=== PATIENT | female | born 1985 | race African-American/Black ===

== ENCOUNTER 2019-03-02 11:02 | Emergency (ER) | payer OTHER ==
[~2019-03-02] VITALS: Ht 162.6 cm; Wt 71.4 kg
[2019-03-02 11:11] VITALS: BP 156/96
[2019-03-02] MEDS: BACITRACIN 0.9 GM PACKET OINTMENT TP ONE (13:17)
[2019-03-02] MEDS: PERTUSS(ACELL),DIPH,TET VAC/PF 0.5 ML VIAL IM ONE (13:17)
[2019-03-02] MEDS: BUPIVACAINE HCL/PF 0.25% 10 ML VIAL INJ ONE (13:17)
== END 2019-03-02 13:44 | disposition home or self-care (01) ==
LOC: EMS 11:03
DX: S61.215A Laceration without foreign body of left ring finger without damage to nail, initial encounter (principal); S61.217A Laceration without foreign body of left little finger without damage to nail, initial encounter; W45.8XXA Other foreign body or object entering through skin, initial encounter; Y93.89 Activity, other specified; Y92.89 Other specified places as the place of occurrence of the external cause; Y99.8 Other external cause status
CPT/HCPCS: 12001; 90471; 90715; 99283; J3490

== ENCOUNTER 2019-06-08 18:05 | Emergency (ER) | payer OTHER ==
[~2019-06-08] VITALS: Ht 162.6 cm; Wt 67.7 kg
[2019-06-08] MEDS ORDERED: FLUCONAZOLE 150 MG TABLET PO ONE (19:30)
[2019-06-08] MEDS ORDERED: MetroNIDAZOLE 500 MG TABLET PO ONE (19:30)
[2019-06-08] MEDS ORDERED: CefTRIAXone SODIUM 1 GM/VIAL IM ONE (19:30)
[2019-06-08] MEDS ORDERED: AZITHROMYCIN 500 MG TABLET PO ONE (19:30)
[2019-06-08 19:46] LABS: APPEARANCE,URINE CLEAR (CLEAR); BILIRUBIN,URINE NEGATIVE (NEGATIVE); GLUCOSE, URINE (UA) NEGATIVE (NEGATIVE); KETONES,URINE NEGATIVE (NEGATIVE); LEUKOCYTE ESTERASE ,URINE SMALL (NEGATIVE); NITRATE,URINE NEGATIVE (NEGATIVE); OCCULT BLOOD,URINE NEGATIVE (NEGATIVE); PH,URINE 6.5 (5.0-8.0); PROTEIN,URINE NEGATIVE (NEGATIVE); UROBILINOGEN,URINE 0.2 mg/dL (<=1.0)
[2019-06-08 20:27] LABS: BACTERIA,URINE Few /HPF (None Seen); RBC,URINE None Seen /HPF (0-2); SQUAMOUS EPITHELIAL CELL,UR Moderate /LPF (None Seen)
[2019-06-08] MEDS ORDERED: LIDOCAINE 1% 10 ML VIAL INJ ONE (20:30)
[2019-06-08 21:11] VITALS: BP 148/97
== END 2019-06-08 21:16 | disposition home or self-care (01) ==
LOC: EMS 18:07
DX: B37.3 Candidiasis of vulva and vagina (principal)
CPT/HCPCS: 81001; 84703; 96372; 99284; J0696

== ENCOUNTER 2022-09-24 20:17 | Emergency (ER) | payer OTHER ==
[~2022-09-24] VITALS: Ht 162.6 cm; Wt 72.7 kg
[2022-09-24 21:30] LABS: APPEARANCE,URINE HAZY (CLEAR); BILIRUBIN,URINE NEGATIVE (NEGATIVE); GLUCOSE, URINE (UA) NEGATIVE (NEGATIVE); KETONES,URINE TRACE mg/dL (NEGATIVE); LEUKOCYTE ESTERASE ,URINE LARGE (NEGATIVE); NITRATE,URINE NEGATIVE (NEGATIVE); OCCULT BLOOD,URINE NEGATIVE (NEGATIVE); PH,URINE 6.5 (5.0-8.0); PROTEIN,URINE 30-70 mg/dL (NEGATIVE); SPECIFIC GRAVITIY, URINE 1.026 (1.003-1.030); UROBILINOGEN,URINE <=1.0 mg/dL (<=1.0)
[2022-09-24 21:38] LABS: BACTERIA,URINE Moderate /HPF (None Seen); RBC,URINE None Seen /HPF (0-2)
[2022-09-24 21:39] LABS: SQUAMOUS EPITHELIAL CELL,UR Many /LPF (None Seen)
[2022-09-24 22:32] VITALS: BP 135/70; PULSE 72; RESP 17; TEMP 98.2
[2022-09-24] MEDS ORDERED: CEPH-558 PO (22:51)
[2022-09-24] MEDS ORDERED: CEPHALEXIN MONOHYDRATE 500 MG CAPSULE PO ONE (23:00)
== END 2022-09-24 23:27 | disposition home or self-care (01) ==
LOC: EMS 20:18
DX: N39.0 Urinary tract infection, site not specified (principal)
CPT/HCPCS: 81001; 87086; 87186; 99283

== ENCOUNTER 2023-02-18 09:16 | Emergency (ER) | payer OTHER ==
[~2023-02-18] VITALS: Ht 162.6 cm; Wt 66.6 kg
[~2023-02-18 09:16] MED LIST: CEPH-558 PO
[2023-02-18 09:23] VITALS: TEMP 97.9
[2023-02-18 09:59] LABS: COVID AG,FIA SOURCE NASAL SWAB
[2023-02-18] MEDS ORDERED: SODIUM CHLORIDE 0.9% 1,000 ML IV ONE ×2 (10:00→11:45)
[2023-02-18] MEDS ORDERED: ONDANSETRON HCL 4 MG/2 ML VIAL IVP ONE (10:00)
[2023-02-18 10:19] LABS: BASOPHILS % (AUTO) 1.1 % (0.0-2.0); EOSINOPHILS % (AUTO) 0.2 % (1.0-6.0); HEMATOCRIT 35.8 % (36-46); HEMOGLOBIN 11.6 g/dL (12.0-16.0); LYMPHOCYTES # (AUTO) 1.1 K/uL (1.0-4.8); LYMPHOCYTES % (AUTO) 29.2 % (22.0-44.0); MEAN CORPUSCULAR HEMOGLOBIN 24.6 pg (26.0-34.0); MEAN CORPUSCULAR HGB CONC 32.5 G/dL (31.0-37.0); MEAN CORPUSCULAR VOLUME 76 fL (80-100); MONOCYTES # (AUTO) 0.4 K/uL (0.1-1.0); MONOCYTES % (AUTO) 9.7 % (2.0-9.0); NEUTROPHILS # (AUTO) 2.2 K/uL (1.8-7.7); NEUTROPHILS % (AUTO) 59.8 % (40.0-70.0); PLATELET COUNT (AUTO) 335 K/uL (150-450); RED BLOOD CELL COUNT(AUTO) 4.72 MIL/uL (4.00-5.20); RED CELL DISTRIBUTION WIDTH 16.8 % (11.5-14.5); WHITE BLOOD COUNT (AUTO) 3.8 K/uL (4.5-11.0)
[2023-02-18 10:29] LABS: ANION GAP 11 mmol/L (8-16); CARBON DIOXIDE 26 mmol/L (22-29); CHLORIDE 103 mmol/L (98-107); CREATININE 0.48 mg/dL (0.60-1.30); GLOMERULAR FILTR. RATE CALC > 60 mL/min (>60); GLUCOSE,RANDOM 90 mg/dL (70-110); POTASSIUM 3.4 mmol/L (3.5-5.1); SODIUM SERUM 140 mmol/L (136-145); UREA NITROGEN, BLOOD 8 mg/dL (7-18)
[2023-02-18 10:29] LABS: INFLUENZA TYPE A NEGATIVE FOR TYPE A (NEGATIVE); INFLUENZA TYPE B NEGATIVE FOR TYPE B (NEGATIVE)
[2023-02-18 10:30] LABS: SARS-COV2 (COVID) ANTIGEN,FIA Negative (Negative)
[2023-02-18 10:37] LABS: RBC MORPHOLOGY COMMENT ABNORMAL RBC MORPH
[2023-02-18] MEDS ORDERED: METOCLOPRAMIDE HCL 5 MG/ML 2 ML VIAL IVP ONE (11:45)
[2023-02-18] MEDS ORDERED: DOXY1TAB3 PO (12:01)
[2023-02-18 12:40] VITALS: BP 134/79; PULSE 78; RESP 16
== END 2023-02-18 12:51 | disposition home or self-care (01) ==
LOC: EMS 09:16
DX: O21.9 Vomiting of pregnancy, unspecified (principal); J10.1 Influenza due to other identified influenza virus with other respiratory manifestations; Z3A.01 Less than 8 weeks gestation of pregnancy; Z20.822 Contact with and (suspected) exposure to COVID-19
CPT/HCPCS: 99285; 96374; 76801; 96361; 96375; 87426; 80048; 87420; 84702; 85025; 87804; 36415; J2765; J2405; J7030

== ENCOUNTER 2023-05-16 17:41 | Emergency (ER) | payer OTHER ==
[~2023-05-16] VITALS: Ht 162.6 cm; Wt 65.9 kg
[~2023-05-16 17:41] MED LIST changes: -CEPH-558 PO; +DOXY1TAB3 PO
[2023-05-16] MEDS: IBUPROFEN 200 MG TABLET PO ONE (21:16)
[2023-05-16] MEDS: GuaiFENesin/D-METHORPHAN [SUGAR-FREE] 200-20MG/10 ML SYRUP UDCUP PO ONE (21:17)
[2023-05-16] MEDS: ACETAMINOPHEN 500 MG TABLET PO ONE (21:17)
[2023-05-16] MEDS: FLUCONAZOLE 150 MG TABLET PO ONE (21:17)
[2023-05-16 21:51] LABS: COVID AG,FIA SOURCE NASAL SWAB
[2023-05-16 22:08] LABS: SARS-COV2 (COVID) ANTIGEN,FIA Negative (Negative)
[2023-05-16 22:21] VITALS: BP 152/69; PULSE 80; RESP 16; TEMP 98.2
[2023-05-16] MEDS ORDERED: FLUC150T61 PO (22:33)
[2023-05-16] MEDS ORDERED: BENZ-227 PO (22:33)
== END 2023-05-16 22:43 | disposition home or self-care (01) ==
LOC: EMS 17:41
DX: J04.0 Acute laryngitis (principal); B37.31 Acute candidiasis of vulva and vagina; I10 Essential (primary) hypertension; D50.9 Iron deficiency anemia, unspecified; Z20.822 Contact with and (suspected) exposure to COVID-19
CPT/HCPCS: 99284; Z7502; Z7610

== ENCOUNTER 2023-06-05 18:52 | Emergency (ER) | payer OTHER ==
[~2023-06-05] VITALS: Ht 160 cm; Wt 65.9 kg
[~2023-06-05 18:52] MED LIST changes: +BENZ-227 PO; +FLUC150T61 PO
[2023-06-05 18:54] VITALS: TEMP 98.2
[2023-06-05 19:28] LABS: BASOPHILS % (AUTO) 0.5 % (0.0-2.0); EOSINOPHILS % (AUTO) 1.1 % (1.0-6.0); HEMATOCRIT 30.2 % (36-46); HEMOGLOBIN 9.4 g/dL (12.0-16.0); LYMPHOCYTES # (AUTO) 2.3 K/uL (1.0-4.8); LYMPHOCYTES % (AUTO) 38.8 % (22.0-44.0); MEAN CORPUSCULAR HEMOGLOBIN 21.8 pg (26.0-34.0); MEAN CORPUSCULAR HGB CONC 31.1 G/dL (31.0-37.0); MEAN CORPUSCULAR VOLUME 70 fL (80-100); MONOCYTES # (AUTO) 0.6 K/uL (0.1-1.0); NEUTROPHILS # (AUTO) 2.9 K/uL (1.8-7.7); NEUTROPHILS % (AUTO) 49.6 % (40.0-70.0); PLATELET COUNT (AUTO) 441 K/uL (150-450); RED BLOOD CELL COUNT(AUTO) 4.31 MIL/uL (4.00-5.20); RED CELL DISTRIBUTION WIDTH 19.2 % (11.5-14.5); WHITE BLOOD COUNT (AUTO) 5.9 K/uL (4.5-11.0)
[2023-06-05 20:00] LABS: APPEARANCE,URINE CLEAR (CLEAR); BILIRUBIN,URINE NEGATIVE (NEGATIVE); COLOR,URINE LIGHT YELLOW (YELLOW); GLUCOSE, URINE (UA) NEGATIVE (NEGATIVE); KETONES,URINE NEGATIVE (NEGATIVE); LEUKOCYTE ESTERASE ,URINE TRACE (NEGATIVE); NITRATE,URINE NEGATIVE (NEGATIVE); OCCULT BLOOD,URINE MODERATE (NEGATIVE); PROTEIN,URINE TRACE mg/dL (NEGATIVE); SPECIFIC GRAVITIY, URINE 1.026 (1.003-1.030); UROBILINOGEN,URINE <=1.0 mg/dL (<=1.0)
[2023-06-05 20:08] LABS: ANION GAP 11 mmol/L (8-16); CALCIUM, TOTAL 8.6 mg/dL (8.8-10.5); CARBON DIOXIDE 23 mmol/L (22-29); CHLORIDE 105 mmol/L (98-107); CREATININE 0.52 mg/dL (0.60-1.30); GLOMERULAR FILTR. RATE CALC > 60 mL/min (>60); GLUCOSE,RANDOM 105 mg/dL (70-110); PLATELET MORPHOLOGY COMMENT LARGE PLTS PRESENT; POTASSIUM 4.3 mmol/L (3.5-5.1); RBC MORPHOLOGY COMMENT ABNORMAL RBC MORPH; SODIUM SERUM 139 mmol/L (136-145); UREA NITROGEN, BLOOD 13 mg/dL (7-18)
[2023-06-05 20:14] LABS: ALANINE AMINOTRANSFERASE 17 U/L (12-78); ALBUMIN 3.1 g/dL (3.4-5.0); ALKALINE PHOSPHATASE 65 U/L (46-116); ASPARTATE AMINOTRANSFERASE 18 U/L (15-37); BILIRUBIN,TOTAL 0.2 mg/dL (0.1-1.0); TOTAL PROTEIN, SERUM 7.7 g/dL (6.4-8.2)
[2023-06-05 20:17] LABS: BACTERIA,URINE Few /HPF (None Seen); RBC,URINE 26-50 /HPF (0-2); SQUAMOUS EPITHELIAL CELL,UR Moderate /LPF (None Seen)
[2023-06-05 22:53] LABS: URIC ACID 2.7 mg/dL (2.6-7.2)
[2023-06-05] MEDS: HydrALAZINE HCL 20 MG/ML VIAL IVP ONE (22:53)
[2023-06-05 23:03] LABS: LACTATE DEHYDROGENASE 140 U/L (81-234)
[2023-06-05 23:45] VITALS: BP 165/98; PULSE 85; RESP 18
[2023-06-05] MEDS ORDERED: CEPH-558 PO (23:54)
[2023-06-06] MEDS: CEPHALEXIN MONOHYDRATE 500 MG CAPSULE PO ONE (00:01)
== END 2023-06-06 00:12 | disposition home or self-care (01) ==
LOC: EMS 18:53
DX: O99.611 Diseases of the digestive system complicating pregnancy, first trimester (principal); O16.1 Unspecified maternal hypertension, first trimester; O02.1 Missed abortion; D64.9 Anemia, unspecified; R82.71 Bacteriuria; Z3A.01 Less than 8 weeks gestation of pregnancy
CPT/HCPCS: 99285; 96374; 76801; 80053; 81001; 83615; 84550; 84702; 85025; 36415; 84703; J0360

== ENCOUNTER 2023-08-16 12:43 | Emergency (ER) | payer OTHER ==
[~2023-08-16] VITALS: Ht 165.1 cm; Wt 65.9 kg
[~2023-08-16 12:43] MED LIST changes: +CEPH-558 PO
[2023-08-16 12:53] VITALS: TEMP 98.2
[2023-08-16 14:12] LABS: APPEARANCE,URINE HAZY (CLEAR); BILIRUBIN,URINE NEGATIVE (NEGATIVE); COLOR,URINE YELLOW (YELLOW); GLUCOSE, URINE (UA) NEGATIVE (NEGATIVE); KETONES,URINE NEGATIVE (NEGATIVE); LEUKOCYTE ESTERASE ,URINE SMALL (NEGATIVE); NITRATE,URINE NEGATIVE (NEGATIVE); OCCULT BLOOD,URINE MODERATE (NEGATIVE); PROTEIN,URINE 30-70 mg/dL (NEGATIVE); SPECIFIC GRAVITIY, URINE 1.029 (1.003-1.030)
[2023-08-16 14:18] LABS: BACTERIA,URINE Moderate /HPF (None Seen); HCG,QUAL URINE NEGATIVE (NEGATIVE); SQUAMOUS EPITHELIAL CELL,UR Many /LPF (None Seen)
[2023-08-16] MEDS ORDERED: METR500 PO (15:16)
[2023-08-16] MEDS ORDERED: CEPH-558 PO (15:17)
[2023-08-16] MEDS ORDERED: FLUC150T61 PO (15:28)
[2023-08-16 15:51] VITALS: BP 149/86; PULSE 77; RESP 16
== END 2023-08-16 15:51 | disposition home or self-care (01) ==
LOC: EMS 12:43
DX: N76.0 Acute vaginitis (principal); N39.0 Urinary tract infection, site not specified; R30.0 Dysuria; R35.0 Frequency of micturition
CPT/HCPCS: 81001; 84703; 87070; 87086; 87186; 87491; 87591; 99283

== ENCOUNTER 2024-01-19 07:36 | Emergency (ER) | payer OTHER ==
[~2024-01-19] VITALS: Ht 162.6 cm; Wt 65.5 kg
[~2024-01-19 07:36] MED LIST changes: -BENZ-227 PO; -DOXY1TAB3 PO; +METR500 PO
[2024-01-19 07:43] VITALS: TEMP 98.5
[2024-01-19] MEDS ORDERED: AMLO5TAB66 PO (07:46)
[2024-01-19 08:08] LABS: APPEARANCE,URINE CLEAR (CLEAR); BILIRUBIN,URINE NEGATIVE (NEGATIVE); COLOR,URINE LIGHT YELLOW (YELLOW); GLUCOSE, URINE (UA) NEGATIVE (NEGATIVE); KETONES,URINE NEGATIVE (NEGATIVE); LEUKOCYTE ESTERASE ,URINE NEGATIVE (NEGATIVE); NITRATE,URINE NEGATIVE (NEGATIVE); OCCULT BLOOD,URINE NEGATIVE (NEGATIVE); PROTEIN,URINE NEGATIVE (NEGATIVE); SPECIFIC GRAVITIY, URINE 1.015 (1.003-1.030); UROBILINOGEN,URINE <=1.0 mg/dL (<=1.0)
[2024-01-19 08:09] LABS: BACTERIA,URINE None Seen /HPF (None Seen); RBC,URINE None Seen /HPF (0-2); WBC,URINE None Seen /HPF (0-5)
[2024-01-19 08:12] LABS: HCG,QUAL URINE NEGATIVE (NEGATIVE)
[2024-01-19 08:38] VITALS: BP 152/88; PULSE 76; RESP 16; O2SAT 99
[2024-01-19] MEDS: IBUPROFEN 600 MG TABLET PO ONE (09:14)
[2024-01-19] MEDS: METHOCARBAMOL 500 MG TABLET PO ONE (09:14)
== END 2024-01-19 09:24 | disposition home or self-care (01) ==
LOC: EMS 07:38
DX: R07.81 Pleurodynia (principal); R10.9 Unspecified abdominal pain; I10 Essential (primary) hypertension
CPT/HCPCS: 81001; 84703; 99283

== ENCOUNTER 2024-11-09 13:07 | Emergency (ER) | payer OTHER ==
[~2024-11-09] VITALS: Ht 162.6 cm; Wt 68.0 kg
[~2024-11-09 13:07] MED LIST changes: +AMLO5TAB66 PO; -CEPH-558 PO; -FLUC150T61 PO; -METR500 PO
[2024-11-09 13:11] VITALS: TEMP 99.9
[2024-11-09 13:25] LABS: COVID AG,FIA SOURCE NASAL SWAB
[2024-11-09 13:52] LABS: INFLUENZA TYPE A NEGATIVE FOR TYPE A (NEGATIVE); INFLUENZA TYPE B NEGATIVE FOR TYPE B (NEGATIVE)
[2024-11-09 13:53] LABS: SARS-COV2 (COVID) ANTIGEN,FIA Negative (Negative)
[2024-11-09 13:58] LABS: RAPID GROUP A STREP POSITIVE (NEGATIVE)
[2024-11-09] MEDS ORDERED: SODIUM CHLORIDE 0.9% 1,000 ML IV ONE (14:15)
[2024-11-09] MEDS ORDERED: ACET-2080 PO (14:30)
[2024-11-09] MEDS ORDERED: IBUP-1554 PO (14:30)
[2024-11-09] MEDS ORDERED: AZIT250T9 PO (14:30)
[2024-11-09] MEDS: DEXAMETHASONE SOD PHOS 4 MG/ML VIAL IM ONE (14:45)
[2024-11-09] MEDS: LIDOCAINE/PF 1% 2 ML VIAL IM ONE (14:45)
[2024-11-09] MEDS: CefTRIAXone SODIUM 1 GM/VIAL IM ONE (14:45)
[2024-11-09 15:02] VITALS: BP 146/95; PULSE 105; RESP 17; O2SAT 99
== END 2024-11-09 15:13 | disposition home or self-care (01) ==
LOC: EMS 13:07
DX: J02.0 Streptococcal pharyngitis (principal); I10 Essential (primary) hypertension; Z79.899 Other long term (current) drug therapy; Z20.822 Contact with and (suspected) exposure to COVID-19
CPT/HCPCS: 99284; 87426; 87430; 87804; 96372; J0696; J1100; J3490